=== PATIENT | female | born 1945 ===

== ENCOUNTER 2018-10-05 08:18 | Outpatient (CLI) | payer OTHER ==
[~2018-10-05] VITALS: Ht 160 cm; Wt 92.5 kg
[2018-10-05] MEDS ORDERED: AYR SALINE NA14.1 GM NASAL (10:33)
== END 2018-10-05 08:40 | disposition home or self-care (01) ==
LOC: OFIC 805 08:18
DX: R04.0 Epistaxis (principal); H61.23 Impacted cerumen, bilateral; E04.9 Nontoxic goiter, unspecified; J34.2 Deviated nasal septum; J31.0 Chronic rhinitis

== ENCOUNTER 2018-10-26 09:15 | Outpatient (CLI) | payer OTHER ==
[~2018-10-26] VITALS: Ht 152.4 cm; Wt 92.5 kg
[~2018-10-26 09:15] MED LIST: AYR SALINE NA14.1 GM NASAL
[2018-10-26] MEDS ORDERED: CLARITIN10 MG PO (13:06)
[2018-10-26] MEDS ORDERED: LIPO-FLAVONOID1 EACH PO (13:06)
== END 2018-10-26 09:30 | disposition home or self-care (01) ==
LOC: OFIC 805 09:15
DX: R04.0 Epistaxis (principal); H61.23 Impacted cerumen, bilateral; E04.9 Nontoxic goiter, unspecified; J34.2 Deviated nasal septum; J31.0 Chronic rhinitis; R42 Dizziness and giddiness